=== PATIENT | male | born 2005 | race African-American/Black ===

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

== ENCOUNTER 2025-07-07 16:31 | Outpatient (CLI) | payer OTHER | END 2025-07-07 16:32 | disposition home or self-care (01) | LOC: NAV RAD 16:31 | PROVIDERS: ATTEND Family Medicine | DX: M41.9 Scoliosis, unspecified (principal) | CPT/HCPCS: 72081 ==